=== PATIENT | male | born 1960 | race Two or more races ===

== ENCOUNTER 2016-10-15 11:09 | Emergency (ER) | payer MEDICAID ==
[~2016-10-15] VITALS: Ht 167.6 cm; Wt 95.3 kg
[2016-10-15] MEDS ORDERED: LIDOCAINE 1%-EPI 1:100,000 20 ML VIAL TP ONE (12:00)
[2016-10-15 13:11] VITALS: BP 136/77
== END 2016-10-15 13:12 | disposition home or self-care (01) ==
LOC: ER 11:11
DX: S61.012A Laceration without foreign body of left thumb without damage to nail, initial encounter (principal); I10 Essential (primary) hypertension; W26.0XXA Contact with knife, initial encounter; Y93.89 Activity, other specified; Y92.89 Other specified places as the place of occurrence of the external cause; Y99.0 Civilian activity done for income or pay
CPT/HCPCS: 12001; 99283; A4606; A6402; Z7610

== ENCOUNTER 2017-12-06 13:17 | Inpatient (IN) | payer MEDICAID ==
[~2017-12-06] VITALS: Ht 172.7 cm; Wt 92.1 kg
[2017-12-06 14:13] LABS: BASOPHILS % (AUTO) 0.7 % (0.0-2.0); EOSINOPHILS % (AUTO) 2.8 % (0.0-6.0); HEMATOCRIT 44 % (39-51); HEMOGLOBIN 15.6 g/dL (13.5-17.5); LYMPHOCYTES # (AUTO) 1.6 /CMM (0.8-4.8); LYMPHOCYTES % (AUTO) 23.5 % (20.0-44.0); MEAN CORPUSCULAR HGB CONC 36 g/dl (31.0-36.0); MEAN CORPUSCULAR VOLUME 88 fL (80-96); MONOCYTES # (AUTO) 0.6 /CMM (0.1-1.30); MONOCYTES % (AUTO) 8.5 % (2.0-12.0); NEUTROPHILS # (AUTO) 4.5 /CMM (1.8-8.9); NEUTROPHILS % (AUTO) 64.5 % (43.0-81.0); PLATELET COUNT (AUTO) 213 /CMM (150-450); RDW COEFFICIENT OF VARIATION 12.8 (11.5-15.0); RED BLOOD CELL COUNT(AUTO) 5.01 MIL/uL (4.5-6.0); WHITE BLOOD COUNT (AUTO) 6.9 K/uL (4.3-11.0)
[2017-12-06 14:24] LABS: CALCIUM, SERUM 9.4 mg/dL (8.5-10.1); CARBON DIOXIDE 27 mmol/L (21-32); CHLORIDE 104 mmol/L (98-107); CREATININE 0.8 mg/dL (0.6-1.3); GLUCOSE 102 mg/dL (74-106); POTASSIUM 4.4 mmol/L (3.5-5.1); SODIUM SERUM 140 mmol/L (136-145); UREA NITROGEN, BLOOD 13 mg/dL (7-18)
[2017-12-06 14:28] LABS: INR 0.92 (0.85-1.15)
[2017-12-06 14:32] LABS: TROPONIN I < 0.017 ng/mL (0.00-0.056)
[2017-12-06 15:03] LABS: D-DIMER 0.22 mg/L(FEU (0.17-0.50)
--- NOTE | 2017-12-06 15:40 | NUR ---
PT TAKEN TO CT.
[2017-12-06] MEDS ORDERED: LISI-659 PO (16:26)
[2017-12-06] MEDS ORDERED: NITR0.4T SL (16:26)
[2017-12-06] MEDS ORDERED: METF-440 PO (16:26)
[2017-12-06] MEDS ORDERED: GLIM1TAB2 PO (16:26)
[2017-12-06] MEDS ORDERED: CARV6.252 PO (16:26)
[2017-12-06] MEDS ORDERED: AMLO10TA6 PO (16:26)
[2017-12-06] MEDS ORDERED: ATOR80TA PO (16:26)
[2017-12-06] MEDS ORDERED: ASPIRIN 325 MG TABLET PO ONE (17:00)
[2017-12-06] MEDS ORDERED: ASPIRIN 325 MG TABLET ONE (17:15)
[2017-12-06] MEDS ORDERED: DEXTROSE 50%-WATER 50 ML DISP.SYRIN IV PRN (18:30)
[2017-12-06] MEDS ORDERED: MAGNESIUM HYDROXIDE 30 ML UDC PO PRN (18:30)
[2017-12-06] MEDS ORDERED: HYDROCODONE/APAP 5/325MG 1 EACH TABLET PO PRN (18:30)
[2017-12-06] MEDS ORDERED: ZOLPIDEM TARTRATE 5 MG TABLET PO PRN (18:30)
[2017-12-06] MEDS ORDERED: NITROGLYCERIN 0.4 MG/TAB BOTTLE SL PRN (18:30)
[2017-12-06] MEDS ORDERED: ACETAMINOPHEN 325 MG TABLET PO PRN (18:30)
[2017-12-06] MEDS ORDERED: hydrALAZINE HCL 25 MG TABLET PO PRN (18:30)
[2017-12-06] MEDS ORDERED: ONDANSETRON HCL/PF 4 MG/2 ML VIAL IVP PRN (18:30)
[2017-12-06] MEDS ORDERED: Z GUARD REMEDY 2 OZ OINT TP PRN (18:30)
[2017-12-06] MEDS ORDERED: INSULIN REGULAR, HUMAN 100 UNIT/ML 3 ML VIAL SQ PRN (18:30)
[2017-12-06] MEDS ORDERED: *INSULIN REGULAR(HUMULIN R)HUM 100 UNIT/ML VIAL SQ PRN (18:30)
[2017-12-06] MEDS ORDERED: MAG HYDROX/AL HYDROX/SIMETH 30 ML UDC PO PRN (18:30)
--- NOTE | 2017-12-06 18:45 | NUR ---
REPORT GIVEN TO SYLVIA BAZAN FOR TELE 308.
--- NOTE | 2017-12-06 19:02 | NUR ---
RN NOTES PATIENT ARRIVED TO UNIT JUST NOW VIA WHEELCHAIR. A/O X 4, VERBALLY RESPONSIVE WITH NO C/O PAIN OR DISCOMFORTS VOICED. ON ROOM AIR, BREATHING EVEN AND UNLABORED, NO ACUTE DISTRESS NOTED. SPOKE TO PT THAT HIS NIGHT NURSE IS AMANDA AND WILL DO THE ADMISSION PROCESS. NURSE PATEL AWARE.
--- NOTE | 2017-12-06 19:05 | NUR ---
TELE/RN NOTES RECEIVED PT. FROM ER VIA WHEELCHAIR. PT. IS AWAKE, ALERT AND ORIENTED X4. BREATHING EVEN AND UNLABORED ON ROOM AIR. NO SOB, RESPIRATORY DISTRESS OR COMPLAINTS OF CHEST PAIN NOTED AT THIS TIME. ORIENTED PT. TO ROOM. PLACED EXTERNAL SALES ACCOUNT REPRESENTATIVE ON PT. CURRENT RHYTHM = SINUS RHYTHM HR 84. PT. WITH RIGHT AC 20 GAUGE IV SALINE LOCK PRESENT, PATENT AND INTACT. PT. WITH FAMILY MEMBER PRESENT AT BEDSIDE. BED LOCKED AND IN LOWEST POSITION, SIDE RAILS UP X2, CALL LIGHT WITHIN REACH, WILL CONTINUE TO MONITOR.
[2017-12-06 20:00] VITALS: BP_SYST 129; BP_SYST 143; BP_DIAS 69; BP_DIAS 82
[2017-12-06] MEDS: BLOOD SUGAR DIAGNOSTIC 1 EACH STRIP VI SCH (22:30)
[2017-12-07] VITALS: BP 137/72
[2017-12-07 04:00] VITALS: BP 112/76
--- NOTE | 2017-12-07 06:21 | NUR ---
TELE/RN NOTES PT. IS LYING IN BED RESTING. BREATHING EVEN AND UNLABORED ON ROOM AIR. NO SOB, RESPIRATORY DISTRESS OR S/S OF PAIN NOTED AT THIS TIME. NO COMPLAINTS OF CHEST PAIN NOTED AT THIS TIME AND THROUGHOUT SHIFT. PT. WITH EXTERNAL AUTO FLEET MANAGER PRESENT AND INTACT. PT. WITH RIGHT AC 20 GAUGE IV SALINE LOCK PRESENT, PATENT AND INTACT. ALL PT. NEEDS MET. NO S/SOF HYPO/HYPERGLYCEMIA NOTED THROUGHOUT SHIFT. BED LOCKED AND IN LOWEST POSITION, SIDE RAILS UP X2, CALL LIGHT WITHIN REACH, WILL ENDORSE TO DAYSHIFT NURSE FOR CONTINUITY OF CARE.
[2017-12-07] MEDS: BLOOD SUGAR DIAGNOSTIC 1 EACH STRIP VI SCH (06:31)
[2017-12-07 06:47] LABS: BASOPHILS % (AUTO) 0.6 % (0.0-2.0); HEMATOCRIT 43 % (39-51); HEMOGLOBIN 14.8 g/dL (13.5-17.5); LYMPHOCYTES # (AUTO) 1.5 /CMM (0.8-4.8); LYMPHOCYTES % (AUTO) 20.3 % (20.0-44.0); MEAN CORPUSCULAR HGB CONC 35 g/dl (31.0-36.0); MEAN CORPUSCULAR VOLUME 89 fL (80-96); MONOCYTES # (AUTO) 0.7 /CMM (0.1-1.30); MONOCYTES % (AUTO) 9.5 % (2.0-12.0); NEUTROPHILS # (AUTO) 4.9 /CMM (1.8-8.9); NEUTROPHILS % (AUTO) 67.6 % (43.0-81.0); PLATELET COUNT (AUTO) 197 /CMM (150-450); RDW COEFFICIENT OF VARIATION 13.5 (11.5-15.0); RED BLOOD CELL COUNT(AUTO) 4.79 MIL/uL (4.5-6.0); WHITE BLOOD COUNT (AUTO) 7.3 K/uL (4.3-11.0)
[2017-12-07 07:14] LABS: IRON, SERUM 111 ug/dl (50-175); TOTAL IRON BINDING CAPACITY 427 ug/dl (250-450)
[2017-12-07 07:17] LABS: CHOLESTEROL 142 mg/dL (<200); HDL CHOLESTEROL 36 mg/dL (40-60); LDL 91 mg/dL (0-99); THYROID STIMULATING HORMONE 4.391 uIU/mL (0.358-3.74); TRIGLYCERIDES 164 mg/dL (30-150)
--- NOTE | 2017-12-07 07:20 | NUR ---
RN NOTES PATIENT ALERT AND ORIENTED X4, ABLE TO VERBALIZE NEEDS, DENIES SOB AND CHEST PAIN AT THIS TIME. PATIENT KEPT NPO FOR CARDIO CONSULT. NO S/SX OF HYPO/HYPERGLYCEMIA NOTED. NEEDS ATTENDED AND MET, CALL LIGHT WITHIN REACH, WILL CONTINUE TO MONITOR.
[2017-12-07 07:21] LABS: TROPONIN I < 0.017 ng/mL (0.00-0.056)
[2017-12-07 07:29] LABS: CALCIUM, SERUM 8.7 mg/dL (8.5-10.1); CARBON DIOXIDE 26 mmol/L (21-32); CHLORIDE 103 mmol/L (98-107); CREATININE 0.9 mg/dL (0.6-1.3); GLUCOSE 96 mg/dL (74-106); MAGNESIUM 1.9 mg/dL (1.8-2.4); PHOSPHORUS 4.3 mg/dL (2.5-4.9); POTASSIUM 3.8 mmol/L (3.5-5.1); SODIUM SERUM 139 mmol/L (136-145); UREA NITROGEN, BLOOD 15 mg/dL (7-18)
[2017-12-07 08:00] VITALS: BP 117/82
[2017-12-07 08:54] VITALS: BP 117/82
[2017-12-07] MEDS ORDERED: ATORVASTATIN 40 MG TABLET PO SCH (09:00)
[2017-12-07] MEDS ORDERED: AMLODIPINE BESYLATE 10 MG TABLET PO SCH (09:00)
[2017-12-07] MEDS ORDERED: LISINOPRIL (20MG) 20 MG TABLET PO SCH (09:00)
[2017-12-07] MEDS ORDERED: ENOXAPARIN SODIUM 100 MG/ML DISP.SYRIN SQ SCH (09:00)
[2017-12-07] MEDS ORDERED: CARVEDILOL 6.25 MG TABLET PO SCH ×2 (09:00)
[2017-12-07] MEDS ORDERED: ASPIRIN 81 MG TAB.CHEW PO SCH (09:00)
--- NOTE | 2017-12-07 10:27 | NUR ---
RN NOTES PATIENT A/OX4, WAS SEEN BY DR. MUSTAFA AND DR. DUPONT THIS MORNING, PATIENT DENIES CHEST PAIN AND SOB AT THIS TIME, PATIENT AND SON DECIDED TO LEAVE AGAINST MEDICAL ADVICE TO HAVE THE CABG PROCEDURE DONE AT ANOTHER HOSPITAL. EDUCATED RE: LEAVING AMA. PATIENT'S DISCHARGE PAPERWORKS SIGNED, BELONGINGS RECONCILED AND COMPLETE, SKIN ASSESSMENT COMPLETED, SKIN DRY AND INTACT, NEEDS ATTENDED AND MET, PATIENT LEFT THE FACILITY IN NO DISTRESS, VIA PRIVATE CAR. Addendum: 12/07/17 at 1058 by SAW COSBY RN ADDENDUM: DR. DUPONT MADE AWARE THAT PATIENT LEFT AMA AT 1015.
[2017-12-07] MEDS ORDERED: METFORMIN 500 MG TABLET PO SCH (18:00)
== END 2017-12-07 10:15 | disposition left against medical advice (07) | DRG 198 ==
LOC: ER 13:19 → TELE 18:17
PROVIDERS: ADMIT Internal Medicine; ATTEND Internal Medicine
DX: I25.110 Atherosclerotic heart disease of native coronary artery with unstable angina pectoris (principal); I10 Essential (primary) hypertension; E11.9 Type 2 diabetes mellitus without complications; E66.9 Obesity, unspecified; Z68.30 Body mass index [BMI] 30.0-30.9, adult; E78.5 Hyperlipidemia, unspecified; Z79.84 Long term (current) use of oral hypoglycemic drugs; K21.9 Gastro-esophageal reflux disease without esophagitis
CPT/HCPCS: 36415; 71045-TC; 80048-TC; 80061-TC; 82746; 82962-TC; 83540-TC; 83735-TC; 83880; 84100-TC; 84443-TC; 84484-TC; 85025-TC; 85378-TC; 85730-TC; 87081-TC; 93307-TC; A4606; J1650; J1815; Z7610